=== PATIENT | male | born 1985 | race Caucasian/White ===

== ENCOUNTER 2019-09-21 05:57 | Emergency (ER) | payer OTHER, SELFPAY | END 2019-09-21 06:17 | disposition home or self-care (01) | LOC: ERS 05:57 | DX: R51 Headache (principal); F90.9 Attention-deficit hyperactivity disorder, unspecified type | CPT/HCPCS: 99283 ==

== ENCOUNTER 2020-07-13 21:29 | Emergency (ER) | payer BC, OTHER ==
[2020-07-13] MEDS ORDERED: Proparacaine 0.5% Opth 15 ML BOT ONE (21:51)
[2020-07-13] MEDS ORDERED: Fluorescein Opthalmic Strip ONE (21:51)
== END 2020-07-13 22:51 | disposition home or self-care (01) ==
LOC: ERS 21:29
DX: S05.32XA Ocular laceration without prolapse or loss of intraocular tissue, left eye, initial encounter (principal); W22.8XXA Striking against or struck by other objects, initial encounter
CPT/HCPCS: 99283

== ENCOUNTER 2021-05-01 06:27 | Inpatient (IN) | payer BC ==
[2021-05-01] MEDS ORDERED: Ondansetron ODT 4 MG TAB ONE (06:57)
[2021-05-01] MEDS ORDERED: Ondansetron PF 4 MG/2 ML Vial ONE (07:04)
[2021-05-01 07:27] LABS: #Lymphocytes 0.7 thou/uL (1.20-3.40); #Monocytes 0.3 thou/uL (0.11-0.59); #Neutrophils 9.7 thou/uL (1.40-6.50); %Basophils 0.2 % (0.0-1.0); %Eosinophils 0.4 % (0.0-10.0); %Lymphocytes 6.2 % (21.0-51.0); %Monocytes 3.2 % (0.0-10.0); Hemoglobin 17.6 g/dL (14.0-18.0); Mean Corpuscular HGB CONC 34.6 g/dL (32.0-36.0); Mean Corpuscular Volume 89.5 fL (78.0-98.0); Platelet Count 347 thou/uL (130-400); RBC Distribution Width 10.9 % (11.5-14.5); Red Blood Cell (RBC) Count 5.68 mill/uL (4.70-6.10); White Blood Cell (WBC) Count 10.7 thou/uL (4.8-10.8)
[2021-05-01 07:49] LABS: Anion Gap 28 mmol/L (10-20); BUN (Urea Nitrogen) 15 mg/dL (8.9-20.6); Calc. Creatinine Clearance 0 mL/min (70-130); Carbon Dioxide 14 mmol/L (22-29); Chloride 99 mmol/L (98-107); Potassium 4.2 mmol/L (3.5-5.1); Sodium 137 mmol/L (136-145)
[2021-05-01 07:50] LABS: ALT (SGPT) 62 U/L (8-55); AST (SGOT) 31 U/L (5-34); Albumin 4.8 g/dL (3.5-5.0); Bilirubin, Total 1.5 mg/dL (0.2-1.2); Calcium 9.6 mg/dL (7.8-10.44); Globulin 3.2 g/dL (2.4-3.5); Glucose 528 mg/dL (70-105)
[2021-05-01 07:58] LABS: Alkaline Phosphatase 116 U/L (40-110)
[2021-05-01 08:24] LABS: Analyzer IN Cardio ER; Base Excess -7.3 mEq/L (-2.0 to +3.0); Calcium, Ionized (venous) 1.08 mmol/L (1.16-1.32); Chloride (VBG) 97 mmol/L (98-106); Hemoglobin (Hb) 19.4 g/dL (13.2-17.3); Potassium (VBG) 4.26 mmol/L (3.70-5.30); Sodium 134.8 mmol/L (133-146); pH (venous) 7.41 (7.32-7.43)
[2021-05-01 08:26] LABS: Actual Bicarbonate (HCO3v) 14 mEq/L (22-28)
[2021-05-01] MEDS ORDERED: NS 0.9% w/ 20 MEQ KCL 1,000 ML ONE (08:36)
[2021-05-01] MEDS ORDERED: INSULIN REGULAR IN 0.9 % NACL 100 UNIT/100 ML BAG ONE (08:36)
[2021-05-01] MEDS ORDERED: Sodium Chloride 0.9% 1,000 ML IV SCH (09:15)
[2021-05-01] MEDS ORDERED: Ondansetron ODT 4 MG TAB SL PRN (09:15)
[2021-05-01] MEDS ORDERED: Ondansetron PF 4 MG/2 ML Vial IVP PRN ×2 (09:15→09:32)
[2021-05-01] MEDS ORDERED: Bisacodyl 10 MG SUPP PR PRN (09:32)
[2021-05-01] MEDS ORDERED: HUMULIN R 100 UNITS in Sodium Chloride 0.9% 100 ML IVPB SCH (09:32)
[2021-05-01] MEDS ORDERED: Guaifenesin DM 100-10/5 ML UDCUP PO PRN (09:32)
[2021-05-01] MEDS ORDERED: HYDROcodone/Acetaminophen 5/325 mg Tablet PO PRN (09:32)
[2021-05-01] MEDS ORDERED: NS 0.9% w/ 20 MEQ KCL 1,000 ML IV PRN ×2 (09:32)
[2021-05-01] MEDS ORDERED: Calcium Carbonate 500 MG ChewTAB PO PRN (09:32)
[2021-05-01] MEDS ORDERED: Acetaminophen 325 MG TAB PO PRN (09:32)
[2021-05-01] MEDS ORDERED: Senokot S 8.6-50 MG TAB PO PRN (09:32)
[2021-05-01] MEDS ORDERED: D5 1/2 NS w/20 mEq KCL 1,000 ML IV PRN (09:32)
[2021-05-01] MEDS ORDERED: Electrolyte Replacement Protocol 1 EACH IVPB PRN (09:32)
[2021-05-01] MEDS ORDERED: Dextrose 5 %-0.45 % NaCl 1,000 ML IV PRN (09:32)
[2021-05-01] MEDS ORDERED: Sodium Chloride 0.9% 1,000 ML IV PRN ×4 (09:32)
[2021-05-01 10:23] LABS: Anion Gap 23 mmol/L (10-20); BUN (Urea Nitrogen) 14 mg/dL (8.9-20.6); Calc. Creatinine Clearance 0 mL/min (70-130); Carbon Dioxide 15 mmol/L (22-29); Chloride 103 mmol/L (98-107); Glucose 429 mg/dL (70-105); Potassium 3.9 mmol/L (3.5-5.1); Sodium 137 mmol/L (136-145)
[2021-05-01 12:19] LABS: Bilirubin Negative (Negative); Blood, Urine Negative (Negative); Clarity Clear (Clear); Glucose, Urine (Dipstick) Greater than 1000 mg/dL (Negative); Ketone, Urine 100 mg/dL (Negative); Leukocyte Negative Leu/uL (Negative); Nitrite Negative (Negative); Protein, Urine (Dipstick) Negative (Neg-Trace); Specific Gravity, Urine 1.039 (1.002-1.036); Urobilinogen Normal mg/dL (Less than 2); pH, Urine 5.5 (5.0-9.0)
[2021-05-01 12:21] VITALS: BMI 39.5
[2021-05-01 12:46] LABS: SARS-CoV-2 NAA Rapid Test Not Detected (NotDetected)
[2021-05-01] MEDS ORDERED: FLU VACC QS2021-22(6MOS UP)/PF 60 MCG/0.5 ML SYRINGE IM ONE (13:45)
[2021-05-01 14:11] LABS: Anion Gap 13 mmol/L (10-20); BUN (Urea Nitrogen) 11 mg/dL (8.9-20.6); Calc. Creatinine Clearance 203 mL/min (70-130); Calcium 8.3 mg/dL (7.8-10.44); Carbon Dioxide 25 mmol/L (22-29); Chloride 102 mmol/L (98-107); Glucose 227 mg/dL (70-105); Potassium 3.7 mmol/L (3.5-5.1); Sodium 136 mmol/L (136-145)
[2021-05-01 17:52] LABS: Anion Gap 14 mmol/L (10-20); BUN (Urea Nitrogen) 10 mg/dL (8.9-20.6); Calc. Creatinine Clearance 229 mL/min (70-130); Calcium 8.1 mg/dL (7.8-10.44); Carbon Dioxide 22 mmol/L (22-29); Chloride 107 mmol/L (98-107); Glucose 92 mg/dL (70-105); Potassium 3.3 mmol/L (3.5-5.1); Sodium 140 mmol/L (136-145)
[2021-05-01] MEDS: Famotidine 20 MG TAB PO SCH (21:23)
[2021-05-01] MEDS: Potassium Chloride 20 MEQ in Premix Bag 1 BAG IVPB SCH (23:01)
[2021-05-02] MEDS: Potassium Chloride 20 MEQ in Premix Bag 1 BAG IVPB SCH (01:09)
[2021-05-02] MEDS ORDERED: Dextrose 50% Abboject 50 ML SYRINGE SLOW IVP PRN (02:55)
[2021-05-02] MEDS ORDERED: Dextrose 5% in Water 1,000 ML IV PRN (02:55)
[2021-05-02] MEDS ORDERED: HumaLOG 300 UNITS/3 ML VIAL SC PRN ×4 (02:55→03:11)
[2021-05-02] MEDS ORDERED: Sodium Chloride 0.9% 1,000 ML IV SCH (02:55)
[2021-05-02] MEDS ORDERED: Lantus 1000 UNITS/10 ML VIAL SC SCH (03:00)
[2021-05-02 05:36] LABS: Hemoglobin A1c Greater than 14.0 % (4.0-6.0)
[2021-05-02 05:57] LABS: Anion Gap 11 mmol/L (10-20); BUN (Urea Nitrogen) 9 mg/dL (8.9-20.6); Calc. Creatinine Clearance 232 mL/min (70-130); Calcium 7.9 mg/dL (7.8-10.44); Carbon Dioxide 21 mmol/L (22-29); Cardiac Risk 4.7 (Less than 4.5); Chloride 105 mmol/L (98-107); Cholesterol 121 mg/dl (< 200 Desired); Glucose 367 mg/dL (70-105); HDL Cholesterol 26 mg/dL (>60 Neg Risk); LDL Cholesterol, Calculated 75 mg/dL; Potassium 3.5 mmol/L (3.5-5.1); Sodium 133 mmol/L (136-145); Triglycerides 101 mg/dL (Less than 150)
[2021-05-02 08:53] VITALS: BP 122/84; TEMP 97.8
[2021-05-02] MEDS ORDERED: Enoxaparin Sodium 40 MG/0.4 ML SYRINGE SC SCH (09:00)
[2021-05-02] MEDS: Famotidine 20 MG TAB PO SCH (09:14)
== END 2021-05-02 12:11 | disposition home or self-care (01) | DRG 638 ==
LOC: ERS 06:27 → IMCU/EMU 09:04 → SURG A 15:17 → IMCU/EMU 15:19 → MSONC 05-02 02:16
PROVIDERS: ADMIT Internal Medicine; ATTEND Internal Medicine
DX: E11.10 Type 2 diabetes mellitus with ketoacidosis without coma (principal); E87.1 Hypo-osmolality and hyponatremia; F90.9 Attention-deficit hyperactivity disorder, unspecified type; E66.01 Morbid (severe) obesity due to excess calories; E87.6 Hypokalemia; Z20.822 Contact with and (suspected) exposure to COVID-19; Z91.14 Patient's other noncompliance with medication regimen; Z90.49 Acquired absence of other specified parts of digestive tract; Z68.39 Body mass index [BMI] 39.0-39.9, adult
CPT/HCPCS: 36415; 36416; 71045; 80048; 80053; 80061; 81003; 82010; 82805; 83036; 85025; J1815; J2405; J3480; J7030; J7042; J7050; Q0162; U0002

== ENCOUNTER 2023-05-13 12:54 | Emergency (ER) | payer BC ==
[2023-05-13] MEDS ORDERED: Ibuprofen 800 MG TAB ONE (15:04)
== END 2023-05-13 16:35 | disposition home or self-care (01) ==
LOC: ERS 12:54
DX: G89.29 Other chronic pain (principal); M54.9 Dorsalgia, unspecified; E11.9 Type 2 diabetes mellitus without complications
CPT/HCPCS: 72072

== ENCOUNTER 2023-10-03 12:41 | Observation (INO) | payer BC ==
[2023-10-03 13:33] LABS: #Basophils 0.07 10x3/uL (0.0-0.2); %Basophils 1.3 % (0.0-1.0); %Eosinophils 1.1 % (0.0-10.0); %Lymphocytes 28.4 % (21.0-51.0); %Monocytes 15.9 % (0.0-10.0); %Neutrophils 53.1 % (42.0-75.0); Hematocrit 51.2 % (42.0-52.0); Hemoglobin 18.3 g/dL (14.0-18.0); Mean Corpuscular HGB CONC 35.7 g/dL (32.0-36.0); Mean Corpuscular Hemoglobin 30.7 pg (27.0-31.0); Mean Corpuscular Volume 85.8 fL (78.0-98.0); Mean Platelet Volume 9.6 fL (7.4-10.4); Platelet Count 245 10x3/uL (130-400); RBC Distribution Width 11.7 % (11.5-14.5); Red Blood Cell (RBC) Count 5.97 mill/uL (4.70-6.10)
[2023-10-03 14:41] LABS: Potassium 3.1 mmol/L (3.5-5.1)
[2023-10-03 14:42] LABS: Albumin 4.6 g/dL (3.5-5.0); Calcium 10.5 mg/dL (7.8-10.44); Chloride 99 mmol/L (98-107); Sodium 133 mmol/L (136-145)
[2023-10-03 14:43] LABS: Globulin 3.9 g/dL (2.4-3.5); Glucose 392 mg/dL (70-105); Protein, Total 8.5 g/dL (6.0-8.3)
[2023-10-03 14:44] LABS: Anion Gap 21 mmol/L (10-20); Carbon Dioxide 16 mmol/L (22-29)
[2023-10-03] MEDS ORDERED: Ondansetron PF 4 MG/2 ML Vial ONE (14:45)
[2023-10-03 14:46] LABS: Alkaline Phosphatase 99 U/L (40-110); Bilirubin, Total 2.1 mg/dL (0.2-1.2); Lipase 29 U/L (8-78)
[2023-10-03 14:47] LABS: BUN (Urea Nitrogen) 17 mg/dL (8.9-20.6); Calc. Creatinine Clearance 0 mL/min (70-130); Estimated GFR 101
[2023-10-03 14:49] LABS: ALT (SGPT) 44 U/L (8-55); AST (SGOT) 27 U/L (5-34)
[2023-10-03] MEDS ORDERED: NS 0.9% w/ 20 MEQ KCL 1,000 ML ONE (15:30)
[2023-10-03] MEDS ORDERED: Potassium Chloride 20 MEQ TAB ONE (15:30)
[2023-10-03] MEDS ORDERED: Insulin Regular, Human 100 UNIT/ML 10 ML VIAL ONE (15:30)
[2023-10-03 15:40] LABS: Magnesium 1.8 mg/dL (1.6-2.6)
[2023-10-03 15:42] LABS: Actual Bicarbonate (HCO3v) 23.6 mEq/L (22-28); Base Excess -3.5 mEq/L (-2.0 to +3.0); Chloride (VBG) 96 mmol/L (98-106); Hematocrit-VBG 54 % (42.0-52.0); Hemoglobin (Hb) 18.4 g/dL (13.2-17.3); Potassium (VBG) 3.45 mmol/L (3.70-5.30); Sodium 138 mmol/L (133-146); pH (venous) 7.298 (7.32-7.43)
[2023-10-03 15:59] LABS: Bacteria/HPF None Seen HPF (None Seen); Bilirubin Negative (Negative); Blood, Urine Negative (Negative); CAUTI Indications for Culture Pelvic or flank pain; Clarity Clear (Clear); Glucose, Urine (Dipstick) Greater than 1000 mg/dL (Negative); Ketone, Urine 60 mg/dL (Negative); Leukocyte Negative Leu/uL (Negative); Nitrite Negative (Negative); Protein, Urine (Dipstick) 300 mg/dL (Neg-Trace); RBC/HPF 0-3 HPF (0-3); Specific Gravity, Urine 1.044 (1.002-1.036); Squamous Epithelial 0-3 HPF (0-3); Urobilinogen Normal mg/dL (Less than 2); WBC/HPF 0-3 HPF (0-3)
[2023-10-03 16:14] LABS: Urine Culture Reflex No No
[2023-10-03] MEDS ORDERED: Acetaminophen 325 MG TAB PO PRN (16:51)
[2023-10-03] MEDS ORDERED: Ondansetron PF 4 MG/2 ML Vial IVP PRN (16:51)
[2023-10-03 18:05] LABS: Anion Gap 16 mmol/L (10-20); BUN (Urea Nitrogen) 15 mg/dL (8.9-20.6); Calc. Creatinine Clearance 0 mL/min (70-130); Calcium 8.8 mg/dL (7.8-10.44); Carbon Dioxide 20 mmol/L (22-29); Chloride 103 mmol/L (98-107); Estimated GFR 119; Glucose 285 mg/dL (70-105); Potassium 3.7 mmol/L (3.5-5.1); Sodium 135 mmol/L (136-145)
[2023-10-03] MEDS ORDERED: Dextrose 5% in Water 1,000 ML IV PRN (18:19)
[2023-10-03] MEDS ORDERED: Glucagon 1 MG/ML KIT IM PRN (18:19)
[2023-10-03] MEDS ORDERED: Dextrose 50% Abboject 50 ML SYRINGE SLOW IVP PRN (18:19)
[2023-10-03 19:04] LABS: Hemoglobin A1c 12.9 % (4.0-6.0)
[2023-10-03 20:25] VITALS: BMI 40.8
[2023-10-03] MEDS: Magnesium Oxide 400 MG TAB PO SCH (20:45)
[2023-10-03] MEDS: Sodium Chloride 0.9% 1,000 ML IV SCH (21:36)
[2023-10-03] MEDS: Insulin Lispro 100 UNIT/ML 10 ML VIAL SC PRN (21:39)
[2023-10-04] MEDS: Insulin Lispro 100 UNIT/ML 10 ML VIAL SC PRN (05:54)
[2023-10-04 09:10] LABS: Band 14 % (5-11); Burr Cells SLIGHT = 2-5 cells HPF (0-1); Eosinophils 2 % (0-10); Lymphocytes 30 % (21-51); Metamyelocyte 1 % (0-0); Monocytes 6 % (0-10); Neutrophil 44 % (42-75); Platelet Adequacy Comment Platelets Normal; Polychromasia SLIGHT = 2-3 cells HPF (0-2); Reactive Lymphocytes 2 % (0-10)
[2023-10-04] MEDS: Lisinopril 20 MG TAB PO SCH (09:19)
[2023-10-04] MEDS: Enoxaparin 40 MG (0.4 mL) SYRINGE SC SCH (09:20)
[2023-10-04 09:35] LABS: Hematocrit 45.2 % (42.0-52.0); Hemoglobin 15.9 g/dL (14.0-18.0); Mean Corpuscular HGB CONC 35.2 g/dL (32.0-36.0); Mean Corpuscular Hemoglobin 31.1 pg (27.0-31.0); Mean Corpuscular Volume 88.5 fL (78.0-98.0); Mean Platelet Volume 9.4 fL (7.4-10.4); Platelet Count 245 10x3/uL (130-400); RBC Distribution Width 11.8 % (11.5-14.5); Red Blood Cell (RBC) Count 5.11 mill/uL (4.70-6.10)
[2023-10-04 10:39] LABS: Anion Gap 17 mmol/L (10-20); BUN (Urea Nitrogen) 13 mg/dL (8.9-20.6); Calc. Creatinine Clearance 246 mL/min (70-130); Carbon Dioxide 16 mmol/L (22-29); Chloride 106 mmol/L (98-107); Estimated GFR 119; Glucose 305 mg/dL (70-105); Magnesium 1.8 mg/dL (1.6-2.6); Potassium 3.6 mmol/L (3.5-5.1); Sodium 135 mmol/L (136-145)
[2023-10-04 19:07] VITALS: BP 136/78; TEMP 98
== END 2023-10-04 19:10 | disposition home or self-care (01) ==
LOC: ERS 12:41 → T4-B 16:33
PROVIDERS: ADMIT Internal Medicine; ATTEND Family Medicine
DX: E11.10 Type 2 diabetes mellitus with ketoacidosis without coma (principal); E87.6 Hypokalemia; I10 Essential (primary) hypertension; R19.7 Diarrhea, unspecified; E66.01 Morbid (severe) obesity due to excess calories; Z68.41 Body mass index [BMI] 40.0-44.9, adult; Z90.49 Acquired absence of other specified parts of digestive tract
CPT/HCPCS: 36415; 36416; 80048; 80053; 81001; 82010; 82805; 83036; 83690; 83735; 85025; 93005; G0378; J1650; J1815; J2405; J3480; J7050